=== PATIENT | female | born 1940 | race Caucasian/White ===

== ENCOUNTER 2018-11-22 13:26 | Emergency (ER) | payer MEDICARE, SELFPAY ==
[2018-11-22 13:27] VITALS: PULSE 60; RESP 16; TEMP 36.6; O2SAT 95; BMI 23.6
--- NOTE | 2018-11-22 13:39 | CT_ITS ---
STUDY: CT FACIAL BONES WITHOUT CONTRAST REASON FOR EXAM: Female, 78 years old. Fell yesterday hitting right eye, bruising and swelling to right orbit, no LOC RADIATION DOSAGE (If Supplied By Facility): CTDIvol = ( 29.38 ) mGy, DLP = ( 510.73 ) mGycm TECHNIQUE: The patient was scanned in a multi detector CT scanner. Sagittal and coronal images were reconstructed. Individualized dose optimization techniques were used for this CT. COMPARISON: None. FINDINGS: Right periorbital soft tissue swelling but no underlying fracture. Normal orbital hand and orbital contents. Normal nasal bones and anterior nasal spine. Normal facial bones. There is no demonstrated fracture. Mild maxillary and right ethmoid sinus disease but no air-fluid levels are seen. There are mild degenerative changes of the cervical spine, partially visualized. CT/Sinus/Facial Bone IMPRESSION: Right periorbital soft tissue swelling. No fracture demonstrated. Mild paranasal sinus disease. Electronically Signed: Domingo Tovar MD ([place]) at 14:19 EDT , Service support ,
--- NOTE | 2018-11-22 13:39 | CT_ITS ---
STUDY: CT BRAIN WITHOUT CONTRAST REASON FOR EXAM: Female, 78 years old. Fell yesterday hitting right eye, bruising and swelling to right orbit, no LOC RADIATION DOSAGE (If Supplied By Facility): CTDIvol = ( 44.99 ) mGy, DLP = ( 728.62 ) mGycm TECHNIQUE: Transaxial CT imaging of the brain was performed without administration of intravenous contrast material. Individualized dose optimization techniques were used for this CT. COMPARISON: No relevant priors. FINDINGS: There is right periorbital soft tissue swelling. Normal calvarium. Normal size ventricles and extra-axial spaces for the patient's age. Normal white matter tracts of the cerebral hemispheres. Normal basal ganglia and thalami. Normal brainstem. Normal cerebellum. There is no intracranial hemorrhage. There are no findings of an acute ischemic infarction. Atherosclerosis of the bilateral carotid siphons with some tortuosity in the left side causing some asymmetry. No associated mass effect. There is mucoperiosteal inflammatory disease of the right ethmoid sinuses consistent with mild chronic sinusitis. CT/Brain/Head without Contrast IMPRESSION: 1. Right periorbital soft tissue swelling without underlying fracture. No acute intracranial hemorrhage. 2. Right periorbital soft tissue swelling. Electronically Signed: Domingo Tovar MD ([place]) at 14:18 EDT , Service support ,
--- NOTE | 2018-11-22 13:40 | ED.VIS.GEN ---
History of Present Illness Chief Complaint: Fall Informant: Patient Onset: Yesterday Current Severity: Mild Maximum Severity: Mild Narrative: Patient was walking her dog last evening when she tripped on uneven sidewalk and fell forward, striking the right side of her face and her hands. Today she has significant periorbital ecchymosis and edema. She denies vision change. She is not on anticoagulants and did not lose consciousness. She had no headache or vomiting. Past Medical History - Allergies and Home Meds Allergies/Adverse Reactions: Allergies tetracycline Adverse Reaction (Verified 11/22/18 13:32) Itching Primary Care Physician: Danyelle Murguia MD [Primary Care Provider] - Prior records reviewed: Yes Past Medical History: - - Reviewed Review of Systems General: Denies: Chills, Fever Eyes: Denies: Visual changes - bilaterally ENT: Reports: - - Right periorbital pain. Denies: Bilateral ear pain Cardiovascular: Denies: Chest pain, Palpitations Respiratory: Denies: Dyspnea, Cough Gastrointestinal: Denies: Abdominal pain, Nausea, Vomiting Musculoskeletal: Reports: Arthralgias Skin: Reports: Abrasions Neurological: Denies: Headache, Weakness, Parasthesia Psych: Denies: Depression Endocrine: Denies: Polyuria, Polydipsia Allergy: Denies: Uticaria Physical Exam Vital Signs/Narrative: Vital Signs Temp Pulse Resp Pulse Ox 11/22/18 13:27 97.8 F 60 16 95 Inital Vital Signs reviewed: Yes General: Well nourished, Well developed Head: Normocephalic, - - Right periorbital edema and ecchymosis. Eyes: Perrl, EOMI, - - Normal conjunctiva. Extraocular movements are fully intact with no sign of entrapment. She does have tenderness along the right periorbital rim. ENT: Moist mucous membranes Neck: Supple Cardiovascular: Regular rate, Regular rhythm Respiratory: No distress, CTA bilaterally Abdomen: Soft, Nontender Extremities: - - Superficial abrasions to the palms of the hands bilaterally. No bony tenderness with full range of motion. Skin: - - As above Neurological: Alert, Oriented x3, Normal Strength, Normal Sensation Psychological: Normal affect Diagnostic/Tx/Re-eval Impressions Brain CT 11/22/18 13:39 IMPRESSION: 1. Right periorbital soft tissue swelling without underlying fracture. No acute intracranial hemorrhage. 2. Right periorbital soft tissue swelling. Electronically Signed: Domingo Tovar MD ([facility]) at 14:18 EDT , Service support , Facial/Sinus 11/22/18 13:39 IMPRESSION: Right periorbital soft tissue swelling. No fracture demonstrated. Mild paranasal sinus disease. Electronically Signed: Domingo Tovar MD ([place]) at 14:19 EDT , Service support , 11/22/18 13:39 CT Facial [Sinus/Facial Bone] [CT] Stat CT Head [Brain/Head without Contrast] [CT] Stat - Medical Decision Making Test results discussed with the patient. There is no evidence of bony injury. She will use Tylenol as needed for pain and ice packs. ED Disposition - Plan for ED Patient: Disposition: Home or Assisted Living Diagnosis: Facial contusion Instructions: FALL, Mechanical, FACIAL CONTUSION, No Wakeup Referrals: Danyelle Murguia MD [Primary Care Provider] - 10-14 Days if not better
== END 2018-11-22 14:59 | disposition home or self-care (01) ==
PROVIDERS: Emergency Provider Emergency Medicine; Family Provider Internal Medicine; PCP Internal Medicine
DX: S00.11XA Contusion of right eyelid and periocular area, initial encounter (principal); W18.09XA Striking against other object with subsequent fall, initial encounter; Y93.K1 Activity, walking an animal
CPT/HCPCS: 70450; 70486; 99282

== ENCOUNTER 2020-06-08 11:21 | Outpatient (RCR) | payer MEDICARE, SELFPAY | END 2020-06-08 23:59 | LOC: IMMUN 11:21 | PROVIDERS: PCP Internal Medicine; Visit Provider Family Medicine | DX: Z23 Encounter for immunization (principal) | CPT/HCPCS: 0011A; 0012A; 91301 ==

== ENCOUNTER 2021-07-03 09:02 | Emergency (ER) | payer MEDICARE, SELFPAY ==
[2021-07-03 09:02] VITALS: BP 193/69; PULSE 80; RESP 16; TEMP 36.6; O2SAT 99; BMI 23.0
[2021-07-03 09:26] VITALS: BP 134/71; PULSE 73; RESP 16; O2SAT 95
--- NOTE | 2021-07-03 09:27 | EDS_ITS ---
HPI History of Present Illness Chief Complaint: Headache Informant: patient Onset/Context/Timing Onset: Days Context: Gradual Timing: Intermittent Current Severity: Mild Maximum Severity: Mild Associated Symptoms/Injury Associated Symptoms: Negative for Fever, Nausea, Vomiting, Sore Throat, Sinus Pressure, Numbness, Tingling, Preceding Aura, Visual Changes, Blurred Vision, Photophobia and Visual Loss Injury - MELO: Negative for Direct Trauma, Fall and Assault Narrative Narrative: 81-year-old female has a history of hypertension, renal insufficiency stage III and polymyalgia rheumatica. She is currently not on steroids. States that she has had intermittent what she describes as a headache on her left temporal and primarily behind her left ear for the last several weeks. She also had a cough and a sore throat she went to an urgent care was placed on antibiotic twice daily for 5 days which she finished 1 to 2 weeks ago. States the URI is improving. She is also had some intermittent night sweats a week ago that is since resolved and a 6 pound weight loss in the last 1 to 2 months. She denies any dysuria. She denies any chest or abdominal pain. She denies any neurological symptoms. She denies any falls or trauma. Prior similar symptoms: No Recent Illness/Hospitalization: No PFSH PFSH Home Medications atorvastatin 40 mg PO DAILY 11/22/18 [History Last Taken Unknown] hydrochlorothiazide 25 mg PO DAILY 11/22/18 [History Last Taken Unknown] Allergy/AdvReac Type Severity Reaction Status Date / Time tetracycline AdvReac Itching Verified 07/03/21 09:05 Social History Smoking Status: Never smoker ROS ROS ED ROS Narrative Mild headache. Review of Systems ROS Unobtainable: Denies due to encephalopathy Constitutional Constitutional ED: Denies chills or fever(s) Eyes Eyes: Denies change in vision ENT ENT ED: Denies ear pain Cardiovascular Cardiovascular: Denies chest pain or palpitations Respiratory/Chest Respiratory/Chest: Reports cough; Denies dyspnea or sputum Gastrointestinal Gastrointestinal: Reports diarrhea; Denies abdominal pain, nausea or vomiting Genitourinary Genitourinary ED: Denies dysuria Musculoskeletal Musculoskeletal: Denies myalgias Integumentary Denies rash Neurologic Neurologic: Reports headache(s) Psychiatric Psychiatric: Denies depression Endocrine Endocrinology: Denies polyuria Hematologic/Lymphatic Hematologic/Lymphatic: Denies easy bruising Allergic/Immunologic Allergic/Immunologic ED: Denies urticaria EXAM Physical Exam Narrative Exam Narrative: 81-year-old female looks extremely well. Sitting in a chair gets up and walks of the bed and transfers without any difficulty. Initial blood pressure elevated 193/69. Otherwise she does not look septic or toxic. She is in no distress. Her temperature is 97.9 temporally. H EENT exam unremarkable atraumatic. She has no temporal arterial tenderness. Neck nontender no lymphadenopathy full range of motion no meningismus. Lungs are clear. Heart regular rate and rhythm. Rate about 80. Abdomen soft nontender. Moving all 4 extremities. 5-5 coordinator integrated marketing strength. Dorsi plantarflexion intact. Neurologic exam normal NIH is 0. Back nontender Const Vital Signs: 07/03/21 09:02 07/03/21 09:26 07/03/21 11:56 Temperature 97.9 F Temperature Source Temporal Pulse Rate 80 73 Respiratory Rate 16 16 Blood Pressure 193/69 H 134/71 H 127/51 H Blood Pressure Mean 110 92 76 Pulse Ox 99 95 Oxygen Delivery Method Room Air Room Air 07/03/21 12:02 Temperature Temperature Source Pulse Rate 63 Respiratory Rate 16 Blood Pressure Blood Pressure Mean Pulse Ox 98 Oxygen Delivery Method Positive well nourished and well developed; Negative for obese, cachectic, contractures or unkempt General Appearance ED: well developed and NAD; Negative for unkempt, cachectic, contractures, cyanotic or diaphoretic Nutritional Appearance: Negative for cachectic or obese HEENT Reports normocephalic and moist mucous membranes; Denies dry mucous membranes Negative for atraumatic, trauma, tenderness, temporal artery tenderness or vesicular rash Face and Sinus: Negative for sinus tenderness Mouth ED: No dry mucous membranes Mouth: No dry mucous membranes Eyes PERRL and EOMs intact bilaterally General Eye ED: Negative for pale conjunctiva or scleral icterus Neck no lymphadenopathy, supple, no meningeal signs and no JVD General: Negative for tenderness Resp normal respiratory effort and clear to auscultation bilaterally Auscultation: Negative for rales, rhonchi or wheezes Cardio regular rate, regular rhythm, S1 normal heart sound, S2 normal heart sound and no murmurs GI non-tender and non-distended Auscultation: normoactive bowel sounds Palpation: soft; Negative for firm, tender, guarding or rigid Back/Spine no CVA tenderness General Back: Negative for CVA tenderness or tenderness Cervical Spine: Negative for cervical spine tenderness Thoracic Spine / Upper Back: Negative for thoracic spinal tenderness Extremity normal to inspection and full ROM General Extremety ED: Negative for edema or tenderness General Extremity: Negative for edema Neuro oriented x3 and CN's II-XII intact bilaterally Sensorium / Orientation: awake, alert, oriented to person, oriented to place and oriented to time; Negative for orientation impaired, lethargic or stuporous Coordination / Balance: [id number] test normal Motor Exam: strength 5/5 throughout Psych mental status grossly normal Appearance: Negative for unkempt Attitude: No agitated Mood & Affect: Negative for depressed, anxious or tearful Skin Lesions: no lesions Rashes: no rashes MDM MDM MDM Narrative Medical decision making narrative: 81-year-old female who has a normal exam. She has had mild headache. Screening labs are being obtained. I do not think she has temporal arteritis. Repeat exam patient doing well at 2:12 PM and will be discharged home. Neurologic exam remains normal. Lab Data Attestation: I reviewed the patient's lab results. Lab results narrative: CBC shows a white count of 8. H&H 11.4 and 34. Platelets of 352. Electrolytes show a sodium 135. Potassium at 3.3. Gap of 3. BUN of 20 creatinine 1. Glucose 121. Her sed rate is elevated at 61 but is below her age of 81. CAT scan of the brain showed no acute abnormality. Labs: Laboratory Results - last 24 hr 07/03/21 07/03/21 09:45 09:45 WBC 8.1 RBC 4.18 L Hgb 11.4 L Hct 34.2 L MCV 81.8 MCH 27.3 MCHC 33.3 RDW Std Deviation 41.0 RDW Coeff of Josh 13.7 Plt Count 352 MPV 9.5 Immature Gran % (Auto) 0.500 Neut % (Auto) 65.2 Lymph % (Auto) 19.8 Major % (Auto) 7.9 Eos % (Auto) 6.0 H Baso % (Auto) 0.6 Absolute Neuts (auto) 5.3 Absolute Lymphs (auto) 1.60 Nucleated RBC % 0 ESR 61 H Sodium 135 L Potassium 3.3 L Chloride 100 Carbon Dioxide 32.0 Anion Gap 3 L BUN 20 H Creatinine 1.00 Estim Creat Clear Calc 34.90 Est GFR (MDRD) Af Amer 68 Est GFR (MDRD) Non-Af 57 L BUN/Creatinine Ratio 20.0 Glucose 121 H Calcium 9.4 Radiography Diagnostic Testing: Clinical Impression(s) from Imaging Studies Brain CT 07/03/21 12:08 IMPRESSION: Chronic involutional changes of the brain. Electronically Signed: Morgan Meade MD at 12:55 EDT , Discharge Plan Triage Chief Complaint: Headache ED Provider: Karl Willingham Dx/Rx/DC Orders Clinical Impression: Headache Instructions: ED Headache Unspecified Prescriptions: No Action atorvastatin 40 MG tablet 40 mg PO DAILY RF: 0 hydrochlorothiazide 25 MG tablet 25 mg PO DAILY RF: 0 Primary Care Provider: Danyelle Murguia Referrals: Danyelle Murguia MD [Primary Care Provider] - 3-5 Days if not improving Activity Restrictions/Additional Instructions: Your labs today were unremarkable. Your CAT scan was normal. Follow-up with your primary care physician if not improving. Disposition Disposition: Home, Self Care
[2021-07-03 09:57] LABS: Erythrocyte Sedimentation Rate 61 mm/hr (0-30)
[2021-07-03 09:58] LABS: Absolute Neutrophil Count 5.3 X10^3/uL (2.0-7.7); Basophil# 0.05 X10^3/uL; Basophil% 0.6 % (0-1); Eosinophil# 0.49 X10^3/uL; Hematocrit 34.2 % (37-47); Hemoglobin 11.4 g/dL (12.0-15.0); Lymphocyte % 19.8 % (19-41); Mean Corp Hgb Conc 33.3 g/dL (32-36); Mean Corpuscular Hgb 27.3 pg (27.0-32.0); Mean Corpuscular Volume 81.8 fL (81-99); Mean Platelet Vol. 9.5 fl (6.2-12.0); Monocyte# 0.64 X10^3/uL; Monocyte% 7.9 % (0-10); NRBC Flagged by Analyzer 0 % (0-5); Neutrophil # 5.28 X10^3/uL (2.7-7.7); Neutrophil % 65.2 % (47-70); Platelet Count 352 K/mm3 (150-450); RBC Distribution Width CV 13.7 % (11.6-14.6); Red Blood Count 4.18 M/mm3 (4.2-5.4); White Blood Count 8.1 K/mm3 (4.4-11.0)
[2021-07-03 10:02] LABS: Anion Gap 3 (5-15); BUN 20 mg/dL (7-18); Calcium,Total 9.4 mg/dL (8.5-10.1); Chloride 100 mmol/L (98-107); EST Glomerular Filtration Rate 57 mL/min (>60); Est Glom Filt Rate - Afr Amer 68 mL/min (>60); Glucose 121 mg/dL (74-106); Potassium 3.3 mmol/L (3.5-5.1); Sodium Level 135 mmol/L (136-145)
[2021-07-03 11:56] VITALS: BP 127/51
[2021-07-03] MEDS: Acetaminophen 325 MG Tablet 650 MG PO (11:59)
[2021-07-03 12:02] VITALS: PULSE 63; RESP 16; O2SAT 98
--- NOTE | 2021-07-03 12:08 | CT_ITS ---
STUDY: CT BRAIN WITHOUT CONTRAST REASON FOR EXAM: Female, 81 years old. Left posterior headache RADIATION DOSAGE (If Supplied By Facility): CTDIvol = ( 44.99 ) mGy, DLP = ( 745.49 ) mGycm TECHNIQUE: Transaxial CT imaging of the brain was performed without administration of intravenous contrast material. Individualized dose optimization techniques were used for this CT. COMPARISON: Comparison is made with prior study dated 11/22/2018. FINDINGS: Normal soft tissue structures. Normal calvarium. There is mild cerebral atrophy with widening of the extra-axial spaces and ventricular dilatation. There are areas of decreased attenuation within the white matter tracts of the supratentorial brain, consistent with microvascular disease changes. Normal basal ganglia and thalami. Normal brainstem. There is mild cerebellar atrophy. There is no intracranial hemorrhage. There are no findings of an acute ischemic infarction. Atherosclerotic plaque formation of the cavernous portions of the internal carotid arteries bilaterally. Normal visualized paranasal sinuses. CT/Brain/Head without Contrast IMPRESSION: Chronic involutional changes of the brain. Electronically Signed: Morgan Meade MD at 12:55 EDT ,
[2021-07-03 14:21] VITALS: BP 136/64; PULSE 54; O2SAT 93
== END 2021-07-03 14:22 | disposition home or self-care (01) ==
PROVIDERS: Emergency Provider Emergency Medicine; PCP Internal Medicine; Visit Provider Emergency Medicine
DX: R51.9 Headache, unspecified (principal); M35.3 Polymyalgia rheumatica; N18.30 Chronic kidney disease, stage 3 unspecified; I12.9 Hypertensive chronic kidney disease with stage 1 through stage 4 chronic kidney disease, or unspecified chronic kidney disease; Z79.899 Other long term (current) drug therapy
CPT/HCPCS: 70450; 80048; 85025; 85652; 99282; A4216

== ENCOUNTER 2023-11-21 09:27 | Emergency (ER) | payer MEDICARE, SELFPAY ==
[2023-11-21] VITALS (7 sets, daily range): BP systolic 127–181; BP diastolic 64–108; PULSE 59–92; RESP 12–31; TEMP 36.3–36.8; O2SAT 83–100; BMI 25.6
--- NOTE | 2023-11-21 09:45 | EDS_ITS ---
HPI History of Present Illness Chief Complaint: Upper Extremity Injury Detail of Chief Complaint: Injury left shoulder Informant: patient Narrative Narrative: Patient presents with injury of the left shoulder that occurred this morning. Patient states that she had her toe caught on uneven pavement and she fell onto her hands and knees catching herself. She did not strike her head or loss of consciousness. She injured her left shoulder. Having a hard time moving the arm at the left shoulder. Denies head or neck pain. Denies chest pain or abdominal pain. She called for a neighbor who helped her up and then she was ambulatory. She is left-hand dominant. Not on blood thinners. [facility] Home Medications ?Medication ?Instructions ?Recorded ?Last Taken ?Type atorvastatin 40 mg tablet 40 mg PO DAILY 11/22/18 Unknown History hydrochlorothiazide 25 mg tablet 25 mg PO DAILY 11/22/18 Unknown History fluoxetine 20 mg capsule 20 mg PO DAILY 11/21/23 Unknown History lisinopril 10 mg tablet 10 mg PO DAILY 11/21/23 Unknown History trazodone 50 mg tablet 50 mg PO QHS 11/21/23 Unknown History Allergy/AdvReac Type Severity Reaction Status Date / Time tetracycline AdvReac Itching Verified 11/21/23 09:28 Social History Smoking Status: Never smoker ROS ROS ED Review of Systems ROS Unobtainable: other Constitutional Constitutional ED: Reports lethargy; Denies chills, fever(s), sweats or weight loss Eyes Eyes: Denies blurry vision, change in vision or diplopia ENT ENT ED: Denies rhinorrhea or sore throat Cardiovascular Cardiovascular: Denies chest pain, orthopnea or racing heartbeat Respiratory/Chest Respiratory/Chest: Denies cough, dyspnea, dyspnea on exertion, orthopnea or sputum Gastrointestinal Gastrointestinal: Denies abdominal pain, diarrhea, nausea or vomiting Genitourinary Genitourinary ED: Denies dysuria, hematuria or urinary frequency Musculoskeletal Musculoskeletal: Reports other Details: Left shoulder pain/injury ; Denies arthralgias, back pain, myalgias or neck pain Integumentary Denies abscess, Abrasions or rash Neurologic Neurologic: Denies headache(s) or weakness Psychiatric Psychiatric: Denies anxiety, depression or suicidal thoughts Endocrine Endocrinology: Denies polydipsia, polyphagia or polyuria Hematologic/Lymphatic Hematologic/Lymphatic: Denies easy bleeding, easy bruising or lymphadenopathy Allergic/Immunologic Allergic/Immunologic ED: Denies mouth swelling, tongue swelling or urticaria EXAM Physical Exam Const Vital Signs: 11/21/23 09:28 Temperature 97.3 F L Temperature Source Temporal Pulse Rate 59 L Respiratory Rate 12 Blood Pressure 141/81 H Blood Pressure Mean 101 Pulse Ox 95 Oxygen Delivery Method Room Air Positive well nourished and well developed General Appearance ED: well developed and NAD HEENT Reports TM's clear and moist mucous membranes normocephalic and atraumatic; Negative for trauma or tenderness Tympanic Membrane ED: Yes TM's clear Eyes PERRL and EOMs intact bilaterally General Eye ED: Negative for pale conjunctiva or scleral icterus Neck no lymphadenopathy, supple and no JVD General: Negative for tenderness Chest Wall inspection of chest normal and palpation of chest normal Chest: Negative for tenderness Resp normal respiratory effort and clear to auscultation bilaterally Effort and Inspection: Negative for respiratory distress or pain with movement Auscultation: Negative for rhonchi, wheezes or diminished lung sounds Cardio regular rate, regular rhythm, S1 normal heart sound, S2 normal heart sound and no murmurs Peripheral Pulses: pulses 2+ throughout GI normal to inspection, nondistended, normoactive bowel sounds, soft to palpation, non-tender, non-distended and no masses Back/Spine no CVA tenderness and no thoracic nor lumbar tenderness Extremity Extremity Narrative: Left shoulder-patient has positive sulcus sign on the left. Limited range of motion at the glenohumeral joint. Neurovascular intact distally. Normal director of primary care strength. No broken skin noted. Left knee-patient is superficial contusion to the anterior aspect of the patella. No significant bony tenderness on exam. General Extremety ED: Negative for edema General Extremity: Negative for edema Neuro oriented x3, CN's II-XII intact bilaterally, no sensory deficits noted and gait normal Sensorium / Orientation: awake, alert, oriented to person, oriented to place and oriented to time Motor Exam: strength 5/5 throughout and strength abnormal Psych mental status grossly normal Skin no rashes or lesions noted and no wounds MDM MDM MDM Narrative Medical decision making narrative: Patient was given propofol 100 mg with good sedation. Initial 2 view x-rays of the left shoulder showed an anterior dislocation. She was consented for procedural sedation. Patient had good reduction performed by myself in the department. Postreduction x-rays obtained showed reduction of the dislocation. Discussed results with patient afterwards and she felt improved. She does not want thing for pain for home. He was placed in a sling and swath. Patient will be referred to orthopedics for follow-up. Does not like the pain medicine for home. Total sedation time 15 minutes Lab Data Attestation: I reviewed the patient's lab results. Radiography Diagnostic Testin view x-rays of left shoulder showed anterior dislocation. Radiology agreement. 2 view x-rays of the left shoulder postreduction shows good reduction. Radiology in agreement. Procedures Procedural Sedation 1 (Initial Baseline): Consent Signed: Yes Any Problems With Anesthesia: No You/Your family experience fever (hyperthermia) w/anesthesia: No Sedation medication: Propofol Dose: 100.0 Route: IV Maliampati Score: Class I ASA Classification: I Discharge Plan Triage Chief Complaint: Upper Extremity Injury ED Provider: Kelly Polanco Dx/Rx/DC Orders Clinical Impression: Closed dislocation of left shoulder Instructions: ED Dislocation: Shoulder (Reduced) Prescriptions: No Action atorvastatin 40 MG tablet 40 mg PO DAILY hydrochlorothiazide 25 MG tablet 25 mg PO DAILY trazodone 50 mg tablet 50 mg PO QHS lisinopril 10 mg tablet 10 mg PO DAILY fluoxetine 20 mg capsule 20 mg PO DAILY Primary Care Provider: Danyelle Murguia Referrals: Danyelle Murguia MD [Primary Care Provider] - Jordy Gutierrez DO [Med Staff - Active Staff] - 3-5 Days Ronni Jones MD [Med Staff - Active Staff] - Print Language: Citizen Of [place] Disposition Disposition: Home, Self Care Discharge Date/Time: 11/21/23 11:15
--- NOTE | 2023-11-21 09:50 | RAD_ITS ---
STUDY: X-RAY - LEFT SHOULDER REASON FOR EXAM: Female, 83 years old. Fall. TECHNIQUE: 2 views of the left shoulder. COMPARISON: None. FINDINGS: There is anterior-inferior dislocation of the left humeral head with respect to the glenoid. Normal acromioclavicular joint. Normal acromion. Intact humeral head and visualized proximal humerus. The soft tissue structures are unremarkable. There is a 1.0 cm calcified granuloma overlying the left lung base. RAD/Shoulder min 2 Views IMPRESSION: Anterior-inferior dislocation of the left humeral head with respect to the glenoid. Electronically Signed: Yifan Rios MD at 10:10 EDT ,
[2023-11-21] MEDS: Propofol 200 MG/20 ML Vial IV BOLUS (10:05)
--- NOTE | 2023-11-21 10:14 | RAD_ITS ---
STUDY: X-RAY - LEFT SHOULDER, 11/21/2023, 10:17 AM and 10:26 AM REASON FOR EXAM: Female, 83 years old. Post reduction. TECHNIQUE: 2 views of the left shoulder. COMPARISON: Left shoulder radiographs dated 11/21/2023, 9:53 AM. FINDINGS: The previously seen anterior-inferior dislocation at the glenohumeral joint has been successfully reduced. Normal acromioclavicular joint. Normal acromion. Intact humeral head and visualized proximal humerus. The soft tissue structures are unremarkable. Again seen is a 1.0 cm calcified granuloma overlying the left lung base. RAD/Shoulder min 2 Views IMPRESSION: Successful reduction of previously seen anterior-inferior glenohumeral dislocation. Electronically Signed: Yifan Rios MD at 10:38 EDT ,
== END 2023-11-21 11:15 | disposition home or self-care (01) ==
PROVIDERS: Emergency Provider Emergency Medicine; PCP Internal Medicine; Visit Provider Emergency Medicine
DX: S43.015A Anterior dislocation of left humerus, initial encounter (principal); W10.1XXA Fall (on)(from) sidewalk curb, initial encounter
CPT/HCPCS: 23650; 73030; 99283; J7030; A4216